=== PATIENT | female | born 1965 | race Native Hawaiian/Other Pacific Islander ===

== ENCOUNTER 2018-06-24 15:33 | Outpatient (CLI) | payer BC ==
[2018-06-24 16:02] LABS: PLATELET COUNT 285 K/uL (152-353)
== END 2018-06-24 19:59 | disposition home or self-care (01) ==
LOC: LABW 15:33
PROVIDERS: Internal Medicine Cardiovascular Disease
DX: Z79.899 Other long term (current) drug therapy (principal)
CPT/HCPCS: 36415; 85027; 85651